=== PATIENT | female | born 1970 | race Native Hawaiian/Other Pacific Islander ===

== ENCOUNTER 2017-10-27 22:49 | Emergency (ER) | payer OTHER | END 2017-10-27 23:07 | disposition home or self-care (01) | LOC: ED 22:49 | DX: Z01.30 Encounter for examination of blood pressure without abnormal findings (principal) | CPT/HCPCS: 99281 ==

== ENCOUNTER 2018-07-22 12:55 | Outpatient (CLI) | payer OTHER | END 2018-07-22 19:38 | disposition home or self-care (01) | LOC: RAD 12:55 | DX: M25.562 Pain in left knee (principal) ==

== ENCOUNTER 2019-04-22 18:23 | Emergency (ER) | payer OTHER ==
[~2019-04-22] VITALS: Ht 167.6 cm; Wt 103.4 kg
[2019-04-22 19:25] LABS: PLATELET COUNT 343 K/uL (152-353)
[2019-04-22 19:30] LABS: POTASSIUM 3.4 mmol/L (3.6-5.2)
[2019-04-22 20:34] VITALS: BP 118/72; TEMP 98.3
== END 2019-04-22 20:34 | disposition home or self-care (01) ==
LOC: ED 18:23
PROVIDERS: Emergency Medicine
DX: M79.604 Pain in right leg (principal)
CPT/HCPCS: 80053; 85027; 85379; 96372; 99283; J1885

== ENCOUNTER 2019-04-24 15:17 | Emergency (ER) | payer OTHER ==
[~2019-04-24] VITALS: Ht 167.6 cm; Wt 103.4 kg
[2019-04-24 15:27] VITALS: TEMP 97.7
[2019-04-24 16:51] LABS: PLATELET COUNT 337 K/uL (152-353)
[2019-04-24 17:02] LABS: POTASSIUM 3.6 mmol/L (3.6-5.2)
[2019-04-24 19:31] VITALS: BP 138/71
== END 2019-04-24 19:32 | disposition home or self-care (01) ==
LOC: ED 15:17
PROVIDERS: Family Medicine
DX: M17.11 Unilateral primary osteoarthritis, right knee (principal); M25.461 Effusion, right knee; M76.891 Other specified enthesopathies of right lower limb, excluding foot
CPT/HCPCS: 80053; 85027; 96372; 99283; J2930

== ENCOUNTER 2020-02-16 10:30 | Outpatient (CLI) | payer OTHER | END 2020-02-16 22:26 | disposition home or self-care (01) | LOC: US 10:30 | PROVIDERS: ATTEND Nurse Practitioner Family | DX: R10.84 Generalized abdominal pain (principal) ==

== ENCOUNTER 2020-02-17 21:04 | Emergency (ER) | payer OTHER ==
[~2020-02-17] VITALS: Ht 167.6 cm; Wt 113.4 kg
[2020-02-17 22:13] LABS: PLATELET COUNT 314 K/uL (152-353)
[2020-02-17 22:19] LABS: POTASSIUM 3.6 mmol/L (3.6-5.2)
[2020-02-17 23:10] VITALS: BP 160/84; TEMP 98.7
== END 2020-02-17 23:10 | disposition home or self-care (01) ==
LOC: ED 21:04
PROVIDERS: Family Medicine
DX: K21.9 Gastro-esophageal reflux disease without esophagitis (principal)
CPT/HCPCS: 36415; 80053; 81000; 82150; 83690; 85027; 99283

== ENCOUNTER 2020-02-29 08:40 | Outpatient (CLI) | payer OTHER | END 2020-02-29 21:24 | disposition home or self-care (01) | LOC: US 08:40 | PROVIDERS: ATTEND Nurse Practitioner Family | DX: R10.84 Generalized abdominal pain (principal) ==

== ENCOUNTER 2022-05-03 16:45 | Emergency (ER) | payer OTHER ==
[~2022-05-03] VITALS: Ht 167.6 cm; Wt 104.3 kg
[2022-05-03 16:55] VITALS: TEMP 98.9
[2022-05-03 17:38] LABS: PLATELET COUNT 293 K/uL (152-353)
[2022-05-03 17:47] LABS: POTASSIUM 3.7 mmol/L (3.6-5.2)
[2022-05-03 17:54] LABS: PARTIAL THROMBOPLASTIN TIME 24.5 SECONDS (24.5-33.6)
[2022-05-03 19:15] VITALS: BP 152/78
== END 2022-05-03 19:15 | disposition home or self-care (01) ==
LOC: ED 16:45
PROVIDERS: Emergency Medicine
DX: U07.1 COVID-19 (principal)
CPT/HCPCS: 80053; 85027; 85610; 85730; 87502; 99283

== ENCOUNTER 2022-09-17 11:37 | Outpatient (CLI) | payer OTHER | END 2022-09-17 19:28 | disposition home or self-care (01) | LOC: MAMMO 11:37 | PROVIDERS: ATTEND Nurse Practitioner Family | DX: Z12.31 Encounter for screening mammogram for malignant neoplasm of breast (principal) ==